=== PATIENT | male | born 1980 | race Caucasian/White ===

== ENCOUNTER → 2016-12-02 | Outpatient (CLI) | payer BC ==
[2016-12-02 16:57] LABS: BASO % 0.5 %; BASO ABS # 0.05 K/uL (0-0.2); COMPLETE YES; EOS % 2.7 %; HEMATOCRIT 44.3 % (42-52); IG% 0.3 %; LYMPH ABS # 2.67 K/uL (1.2-3.4); MEAN CELL VOLUME 85.2 fL (80-100); MEAN CORPUSCULAR HEMOGLOBIN 30.8 pg (25-34); MEAN CORPUSCULAR HGB CONC 36.1 g/dl (32-36); MEAN PLATELET VOLUME 9.3 fL (7.4-10.4); MONO % 7.4 %; NEUT % 61.1 %; PLATELET COUNT 256 K/uL (130-400); WHITE BLOOD COUNT 9.55 K/uL (4.8-10.8)
[2016-12-02 17:08] LABS: ALT/SGPT 98 U/L (12-78); AST/SGOT 50 U/L (15-37); BLOOD UREA NITROGEN 19 mg/dl (7-18); BUN/CREATININE RATIO 14.7 (10-20); CALCIUM 8.9 mg/dl (8.5-10.1); CARBON DIOXIDE 26 mmol/L (21-32); CHLORIDE 104 mmol/L (98-107); GLUCOSE 97 mg/dl (70-99); POTASSIUM 3.9 mmol/L (3.5-5.1); SODIUM 140 mmol/L (136-145)
[2016-12-02 17:12] LABS: ALB/GLOB RATIO 1.1 (0.9-2); ALKALINE PHOSPHATASE 98 U/L (45-117); RHEUMATOID FACTOR < 10.0 U/mL (0-15)
[2016-12-02 19:33] LABS: LYME DISEASE AB IGG NEG (NEG); LYME DISEASE AB IGM NEG (NEG)
== END | disposition home or self-care (01) ==
LOC: C.LABBC 13:18
PROVIDERS: ATTEND Psychiatry & Neurology Neurology
DX: G62.9 Polyneuropathy, unspecified (principal)

== ENCOUNTER → 2016-12-17 | Outpatient (CLI) | payer BC ==
--- NOTE | 2016-12-17 11:11 | DIAGNOSTIC IMAGING REPORT ---
L-SPINE MIN 4 VIEWS ROUTINE CLINICAL HISTORY: Low back pain with sciatica. Positive antinuclear antibody. COMPARISON: Lumbar spine MRI January 29, 2011. FINDINGS: Alignment of the lumbar spine is anatomic. No acute lumbar spine fracture is present. There is moderate disc space narrowing at L5-S1. Sacroiliac joints are intact without evidence for ankylosis. IMPRESSION: 1. No lumbar spine fracture or subluxation. 2. Moderate disc space narrowing with osteophytosis at L5-S1. Mild degenerative changes at the remainder of the lumbar levels. Electronically signed by: Tomas Nassar M.D. 12/17/2016 11:09 AM Dictated Date/Time: 12/17/2016 11:08 AM
== END | disposition home or self-care (01) ==
LOC: C.RAD1850 10:57
PROVIDERS: ATTEND Internal Medicine Rheumatology
DX: M54.40 Lumbago with sciatica, unspecified side (principal); R76.8 Other specified abnormal immunological findings in serum

== ENCOUNTER → 2017-01-07 | Outpatient (CLI) | payer BC ==
[2017-01-07 13:38] LABS: TOTAL IRON BINDING CAPACITY 335 mcg/dl (250-450)
== END | disposition home or self-care (01) ==
LOC: C.LABBC 11:11
PROVIDERS: ATTEND Internal Medicine Rheumatology
DX: M35.9 Systemic involvement of connective tissue, unspecified (principal); R76.8 Other specified abnormal immunological findings in serum; M54.40 Lumbago with sciatica, unspecified side